=== PATIENT | female | born 1955 | race Caucasian/White ===

== ENCOUNTER 2017-05-13 08:04 | Emergency (ER) | payer OTHER ==
--- NOTE | 2017-05-13 08:31 | ER Document Report ---
ED General - General Chief Complaint: Abdominal Pain Stated Complaint: LEFT SIDE PAIN Time Seen by Provider: 05/13/17 08:17 Mode of Arrival: Ambulatory Information source: Patient Notes: 61-year-old female history of diverticulosis presents with left lower quadrant abdominal pain. Patient does not give any information states just look it up in my records, states pain has been ongoing for 3 days patient is tearful noted to have an attitude towards myself She denies any fevers or chills she admits to nausea without vomiting TRAVEL OUTSIDE OF THE [place] IN LAST 30 DAYS: No - HPI Onset: Other Onset/Duration: Intermittent Quality of pain: Sharp Severity: Mild Pain Level: 1 Associated symptoms: Nausea, Other Exacerbated by: Denies Relieved by: Denies Similar symptoms previously: Yes Recently seen / treated by doctor: No - Related Data Allergies/Adverse Reactions: No Known Allergies Allergy (Verified 05/13/17 08:06) Home Medications: Current Home Medications Amoxicillin 500 mg PO BID 05/13/17 [History] Atorvastatin Calcium [Lipitor 10 mg Tablet] 10 mg PO DAILY 05/13/17 [History] Omeprazole 20 mg PO BID 05/13/17 [History] Valsartan/Hydrochlorothiazide [Valsartan-Hctz 160-12.5 mg Tab] 1 each PO DAILY 05/13/17 [History] Past Medical History - Social History Smoking Status: Never Smoker Cigarette use (# per day): No Chew tobacco use (# tins/day): No Smoking Education Provided: No Family History: denies: Arthritis, Other - No clotting disorder Patient has suicidal ideation: No Patient has homicidal ideation: No - Past Medical History Cardiac Medical History: Reports: Hx Hypercholesterolemia, Hx Hypertension Denies: Hx Heart Attack Pulmonary Medical History: Denies: Hx Asthma Neurological Medical History: Denies: Hx Cerebrovascular Accident, Hx Seizures Renal/ Medical History: Denies: Hx Peritoneal Dialysis GI Medical History: Denies: Hx Hepatitis, Hx Hiatal Hernia, Hx Ulcer Infectious Medical History: Denies: Hx Hepatitis Past Surgical History: Reports: Hx Appendectomy, Hx Section, Hx Cholecystectomy, Hx Mastectomy - LT BREAST/AVOID LT ARM. Denies: Hx Open Heart Surgery, Hx Pacemaker - Immunizations Hx Diphtheria, Pertussis, Tetanus Vaccination: Yes Review of Systems - Review of Systems Notes: REVIEW OF SYSTEMS: CONSTITUTIONAL : Denies fever, chills, or sweats. Denies recent illness. EENT: Denies eye, ear, throat, or mouth pain or symptoms. Denies nasal or sinus congestion or discharge. Denies throat, tongue, or mouth swelling or difficulty swallowing. CARDIOVASCULAR: Denies chest pain. Denies palpitations or racing or irregular heart beat. Denies ankle edema. RESPIRATORY: Denies cough, cold, or chest congestion. Denies shortness of breath, difficulty breathing, or wheezing. GASTROINTESTINAL: Admits to abdominal pain admits nausea GENITOURINARY: Denies difficulty urinating, painful urination, burning, frequency, blood in urine, or discharge. FEMALE GENITOURINARY: Denies vaginal bleeding, heavy or abnormal periods, irregular periods. Denies vaginal discharge or odor. MUSCULOSKELETAL: Denies back or neck pain or stiffness. Denies joint pain or swelling. SKIN: Denies rash, lesions or sores. HEMATOLOGIC : Denies easy bruising or bleeding. LYMPHATIC: Denies swollen, enlarged glands. NEUROLOGICAL: Denies confusion or altered mental status. Denies passing out or loss of consciousness. Denies dizziness or lightheadedness. Denies headache. Denies weakness or paralysis or loss of use of either side. Denies problems with gait or speech. Denies sensory loss, numbness, or tingling. Denies seizures. PSYCHIATRIC: Anxious ALL OTHER SYSTEMS REVIEWED AND NEGATIVE. PHYSICAL EXAMINATION: GENERAL: Well-appearing, well-nourished and in no acute distress. HEAD: Atraumatic, normocephalic. EYES: Pupils equal round and reactive to light, extraocular movements intact, conjunctiva are normal. ENT: Nares patent, oropharynx clear without exudates. Moist mucous membranes. NECK: Normal range of motion, supple without lymphadenopathy LUNGS: Breath sounds clear to auscultation bilaterally and equal. No wheezes rales or rhonchi. HEART: Regular rate and rhythm without murmurs ABDOMEN: Soft, tender in the left lower quadrant, nondistended abdomen. No guarding, no rebound. No masses appreciated. Female : deferred Musculoskeletal: Normal range of motion, no pitting or edema. No cyanosis. NEUROLOGICAL: Cranial nerves grossly intact. Normal speech, normal gait. Normal sensory, motor exams PSYCH: Tearful SKIN: Warm, Dry, normal turgor, no rashes or lesions noted. Dictation was performed using Dragon voice recognition software Physical Exam - Vital signs Vitals: Temp Pulse Resp BP Pulse Ox 97.9 F 94 16 118/98 H 95 05/13/17 08:06 05/13/17 08:06 05/13/17 08:06 05/13/17 08:06 05/13/17 08:06 Course - Re-evaluation Re-evalutation: 05/13/17 08:30 Patient overall looks quite well has probable diverticulitis given location and history, patient is quite rude to me from the nurse, I explained to her very calmly that I will gladly treat her nausea and pain but that I do not know her medical history since her previous colonoscopy that is not system from 2011 noted no diverticulosis. Lab work CT pending 05/13/17 08:36 05/13/17 16:18 CT was consistent with diverticulitis as expected, I explained the whole process to the patient including with diverticulitis and diverticulosis since she is not been aware of this. Patient to my face was again pleasant however again was quite rude to nursing staff and stated rude comments about myself to the nurses. Otherwise patient is medically stable will be put on antibiotics and given follow-up with GI specialist After performing a Medical Screening Examination, I estimate there is LOW risk for ACUTE APPENDICITIS, BOWEL OBSTRUCTION, ACUTE CHOLECYSTITIS, PERFORATED DIVERTICULITIS, INCARCERATED HERNIA, PANCREATITIS, PELVIC INFLAMMATORY DISEASE, PERFORATED ULCER, ECTOPIC , or TUBO-OVARIAN ABSCESS, thus I consider the discharge disposition reasonable. Also, there is no evidence or peritonitis , sepsis, or toxicity. I have reevaluated this patient multiple times and no significant life threatening changes are noted. The patient and I have discussed the diagnosis and risks, and we agree with discharging home with close follow-up with the understanding that symptoms and presentations can change. We also discussed returning to the Emergency Department immediately if new or worsening symptoms occur. We have discussed the symptoms which are most concerning (e.g., bloody stool, fever, changing or worsening pain, vomiting) that necessitate immediate return. - Vital Signs Vital signs: Temp Pulse Resp BP Pulse Ox 97.7 F 71 14 114/64 94 05/13/17 11:11 05/13/17 11:11 05/13/17 11:11 05/13/17 11:11 05/13/17 11:11 - Laboratory Result Diagrams: 05/13/17 09:05 05/13/17 09:05 Laboratory results interpreted by me: 05/13/17 05/13/17 05/13/17 09:05 09:05 10:20 WBC 10.6 H MCH 34.2 H Creatinine 0.45 L Glucose 120 H ALT 53 H Ur Leukocyte Esterase TRACE H - Diagnostic Test Radiology reviewed: Image reviewed, Reports reviewed - Diverticulitis Discharge - Discharge Clinical Impression: Diverticulitis Abdominal pain Qualifiers: Abdominal location: left lower quadrant Qualified Code(s): R10.32 - Left lower quadrant pain Nausea & vomiting Qualifiers: Vomiting type: unspecified Vomiting Intractability: non-intractable Qualified Code(s): R11.2 - Nausea with vomiting, unspecified Condition: Stable Disposition: HOME, SELF-CARE Instructions: Diverticulitis ([facility]) Prescriptions: Ciprofloxacin HCl [Cipro 500 mg Tablet] 500 mg PO BID #20 tablet Metronidazole [Flagyl 500 mg Tablet] 500 mg PO Q6H #40 tablet Oxycodone HCl/Acetaminophen [Percocet 5-325 mg Tablet] 1 - 2 tab PO Q4H PRN #15 tablet PRN Reason: Promethazine HCl [Phenergan 25 mg Tablet] 1 - 2 tab PO Q6H PRN #15 tablet PRN Reason: Referrals: LEOPOLDO RUSSELL MD [ACTIVE STAFF] - Follow up tomorrow
[2017-05-13] MEDS ORDERED: NORMAL SALINE 1000 ML 1,000 ML IV ONE (08:35)
[2017-05-13] MEDS ORDERED: HYDROMORPHONE HCL INJ/PF 2 MG/ML AMPULE IV ONE (08:35)
[2017-05-13] MEDS ORDERED: ONDANSETRON HCL INJ/PF 4 MG/2 ML SDV IV ONE (08:35)
[2017-05-13 09:27] LABS: ABSOLUTE BASOPHILS # (AUTO) 0.1 10^3/uL (0.0-0.2); ABSOLUTE EOSINOPHILS # (AUTO) 0.2 10^3/uL (0.0-0.6); ABSOLUTE LYMPHOCYTES (AUTO) 2.6 10^3/uL (0.5-4.7); ABSOLUTE MONOCYTES (AUTO) 0.8 10^3/uL (0.1-1.4); ABSOLUTE NEUT (AUTO) 6.9 10^3/uL (1.7-8.2); BASOPHILS % (AUTO) 0.6 % (0-2); EOSINOPHILS % (AUTO) 1.6 % (0-6); HEMATOCRIT 39.5 % (36.0-47.0); HEMOGLOBIN 13.9 g/dL (12.0-15.5); HGB HCT DIFFERENCE 2.2; LYMPHOCYTES % (AUTO) 24.8 % (13-45); MEAN CORPUSCULAR HEMOGLOBIN 34.2 pg (27.0-33.4); MEAN CORPUSCULAR HGB CONC 35.2 g/dL (32.0-36.0); MEAN CORPUSCULAR VOLUME 97 fl (80-97); MONOCYTES % (AUTO) 7.6 % (3-13); RED BLOOD COUNT 4.07 10^6/uL (3.72-5.28); RED CELL DISTRIBUTION WIDTH 12.2 % (11.5-14.0); SEGMENTED NEUTROPHILS % (AUTO) 65.4 % (42-78); WHITE BLOOD COUNT 10.6 10^3/uL (4.0-10.5)
[2017-05-13] MEDS ORDERED: ONDANSETRON HCL INJ/PF 4 MG/2 ML SDV ONE (09:29)
[2017-05-13 09:41] LABS: ALANINE AMINOTRANSFERASE 53 U/L (9-52); ALBUMIN 4.4 g/dL (3.5-5.0); ALKALINE PHOSPHATASE 91 U/L (38-126); ANION GAP 12 (5-19); ASPARTATE AMINO TRANSFERASE 29 U/L (14-36); BILIRUBIN,DIRECT 0.4 mg/dL (0.0-0.4); BILIRUBIN,TOTAL 0.7 mg/dL (0.2-1.3); BLOOD UREA NITROGEN 10 mg/dL (7-20); CALCIUM 9.8 mg/dL (8.4-10.2); CARBON DIOXIDE 27 mmol/L (22-30); CHLORIDE 105 mmol/L (98-107); CREATININE RESULT 0.45 mg/dL (0.52-1.25); GLUCOSE 120 mg/dL (75-110); LIPASE 107.1 U/L (23-300); SODIUM 143.7 mmol/L (137-145); TOTAL PROTEIN 7.4 g/dL (6.3-8.2)
[2017-05-13 10:36] LABS: APPEARANCE,URINE CLEAR; BILIRUBIN,URINE NEGATIVE (NEGATIVE); GLUCOSE, URINE NEGATIVE (NEGATIVE); KETONES,URINE NEGATIVE (NEGATIVE); LEUKOCYTE ESTERASE,URINE TRACE (NEGATIVE); NITRITE,URINE NEGATIVE (NEGATIVE); PROTEIN,URINE NEGATIVE (NEGATIVE); URINE SPECIFIC GRAVITY 1.011; UROBILINOGEN,URINE NEGATIVE mg/dL (<2.0)
--- NOTE | 2017-05-13 10:37 | RADIOLOGY REPORT (SQ) ---
EXAM DESCRIPTION: CT ABD/PELVIS WITH IV ONLY COMPLETED DATE/TIME: 05/13/2017 10:12 am REASON FOR STUDY: LLQ pain COMPARISON: None. TECHNIQUE: CT scan of the abdomen and pelvis performed with intravenous and oral contrast using jonnie shalonda scanning technique with dynamic intravenous contrast injection. Images reviewed with lung, soft t issue, and bone windows. Reconstructed coronal and sagittal MPR images reviewed. Delayed images for e valuation of the urinary system also acquired. All images stored on PACS. All CT scanners at this facility use dose modulation, iterative reconstruction, and/or weight based d osing when appropriate to reduce radiation dose to as low as reasonably achievable (ALARA). [facility]: Dose Right [facility]: CareDose [facility]: Dose Right [facility]: Teradose 4D [facility]: [email or web address] CONTRAST TYPE AND DOSE: contrast/concentration: Isovue 370.00 mg/ml; Total Contrast Delivered: 82.0 ml; Total Saline Delivered: 68.0 ml RENAL FUNCTION: GFR > 60. RADIATION DOSE: Up-to-date CT equipment and radiation dose reduction techniques were employed. CTDIv ol: 8.6 - 13.0 mGy. DLP: 1077 mGy-cm. . LIMITATIONS: None. FINDINGS: LOWER CHEST: No significant findings. No nodules or infiltrates. LIVER: Normal size. No masses. No dilated ducts. SPLEEN: Normal size. No focal lesions. PANCREAS: No masses. No significant calcifications. No adjacent inflammation or peripancreatic fluid collections. Pancreatic duct not dilated. GALLBLADDER: Surgically absent. ADRENAL GLANDS: No significant masses or asymmetry. RIGHT KIDNEY AND URETER: No solid masses. No significant calcifications. No hydronephrosis or hyd roureter. LEFT KIDNEY AND URETER: No solid masses. No significant calcifications. No hydronephrosis or hydr oureter. AORTA AND VESSELS: No aneurysm. No dissection. Renal arteries, SMA, celiac without stenosis. RETROPERITONEUM: No retroperitoneal adenopathy, hemorrhage or masses. BOWEL AND PERITONEAL CAVITY: Mesenteric inflammation involving a segment distal descending colon cont aining diverticula. No organized fluid collection. No obstruction. No free air or ascites. APPENDIX: Surgically absent. PELVIS: No significant masses. Normal bladder. No free fluid. ABDOMINAL WALL: No masses. No hernias. BONES: No significant or acute findings. OTHER: No other significant finding. IMPRESSION: Diverticulitis distal descending colon. TECHNICAL DOCUMENTATION: JOB ID: [id number] Quality ID # [id number]: Final reports with documentation of one or more dose reduction techniques (e.g., Au tomated exposure control, adjustment of the mA and/or kV according to patient size, use of iterative reconstruction technique) 2010 [employer]- All Rights Reserved
[2017-05-13 11:15] VITALS: BP 114/64
== END 2017-05-13 11:18 | disposition home or self-care (01) ==
LOC: ER 08:04
DX: K57.32 Diverticulitis of large intestine without perforation or abscess without bleeding (principal); R10.32 Left lower quadrant pain; I10 Essential (primary) hypertension; F41.9 Anxiety disorder, unspecified; Z90.49 Acquired absence of other specified parts of digestive tract
CPT/HCPCS: 99284; 96361; 96374; 96375; 36415; 83690; 85025; 80053; 81001; 74177; J1170; J2405; J7030

== ENCOUNTER 2017-05-20 10:13 | Emergency (ER) | payer OTHER ==
[2017-05-20] MEDS ORDERED: ONDANSETRON HCL INJ/PF 4 MG/2 ML SDV IV ONE (10:23)
[2017-05-20] MEDS ORDERED: NORMAL SALINE 1000 ML 1,000 ML IV ONE (10:23)
--- NOTE | 2017-05-20 10:25 | ER Document Report ---
ED Medical Screen (RME) - General Chief Complaint: Abdominal Pain Stated Complaint: ABDOMINAL PAIN Time Seen by Provider: 05/20/17 10:22 Mode of Arrival: Ambulatory Information source: Patient TRAVEL OUTSIDE OF THE [place] IN LAST 30 DAYS: No - HPI Patient complains to provider of: abd pain/nausea Onset: Other - pt was diagnosed with diverticulitis earlier this month -- has been having increased pain and nausea for the past few days - Related Data Allergies/Adverse Reactions: No Known Allergies Allergy (Verified 05/20/17 10:18) Past Medical History - Past Medical History Cardiac Medical History: Reports: Hx Hypercholesterolemia, Hx Hypertension Denies: Hx Heart Attack Pulmonary Medical History: Denies: Hx Asthma Neurological Medical History: Denies: Hx Cerebrovascular Accident, Hx Seizures Renal/ Medical History: Denies: Hx Peritoneal Dialysis GI Medical History: Reports: Hx Gastroesophageal Reflux Disease. Denies: Hx Hepatitis, Hx Hiatal Hernia, Hx Ulcer Infectious Medical History: Denies: Hx Hepatitis Past Surgical History: Reports: Hx Appendectomy, Hx Section, Hx Cholecystectomy, Hx Mastectomy - LT BREAST/AVOID LT ARM. Denies: Hx Open Heart Surgery, Hx Pacemaker - Immunizations Hx Diphtheria, Pertussis, Tetanus Vaccination: Yes Physical Exam - Vital signs Vitals: Temp Pulse Resp BP Pulse Ox 97.5 F 77 18 126/77 H 95 05/20/17 10:18 05/20/17 10:18 05/20/17 10:18 05/20/17 10:18 05/20/17 10:18 Course - Vital Signs Vital signs: Temp Pulse Resp BP Pulse Ox 97.5 F 77 18 126/77 H 95 05/20/17 10:18 05/20/17 10:18 05/20/17 10:18 05/20/17 10:18 05/20/17 10:18
[2017-05-20 11:09] LABS: ABSOLUTE BASOPHILS # (AUTO) 0.1 10^3/uL (0.0-0.2); ABSOLUTE EOSINOPHILS # (AUTO) 0.2 10^3/uL (0.0-0.6); ABSOLUTE LYMPHOCYTES (AUTO) 2.5 10^3/uL (0.5-4.7); ABSOLUTE MONOCYTES (AUTO) 0.6 10^3/uL (0.1-1.4); ABSOLUTE NEUT (AUTO) 3.9 10^3/uL (1.7-8.2); BASOPHILS % (AUTO) 1.1 % (0-2); EOSINOPHILS % (AUTO) 2.2 % (0-6); HEMOGLOBIN 14.2 g/dL (12.0-15.5); HGB HCT DIFFERENCE 2.6; LYMPHOCYTES % (AUTO) 34.4 % (13-45); MEAN CORPUSCULAR HGB CONC 35.5 g/dL (32.0-36.0); MEAN CORPUSCULAR VOLUME 96 fl (80-97); MONOCYTES % (AUTO) 8.2 % (3-13); RED BLOOD COUNT 4.18 10^6/uL (3.72-5.28); RED CELL DISTRIBUTION WIDTH 11.7 % (11.5-14.0); SEGMENTED NEUTROPHILS % (AUTO) 54.1 % (42-78); WHITE BLOOD COUNT 7.2 10^3/uL (4.0-10.5)
[2017-05-20 13:05] LABS: APPEARANCE,URINE CLEAR; BILIRUBIN,URINE NEGATIVE (NEGATIVE); GLUCOSE, URINE NEGATIVE (NEGATIVE); KETONES,URINE NEGATIVE (NEGATIVE); LEUKOCYTE ESTERASE,URINE TRACE (NEGATIVE); NITRITE,URINE NEGATIVE (NEGATIVE); PROTEIN,URINE NEGATIVE (NEGATIVE); URINE SPECIFIC GRAVITY 1.008; UROBILINOGEN,URINE NEGATIVE mg/dL (<2.0)
[2017-05-20 13:13] LABS: ALANINE AMINOTRANSFERASE 45 U/L (9-52); ALBUMIN 3.8 g/dL (3.5-5.0); ALKALINE PHOSPHATASE 67 U/L (38-126); ANION GAP 11 (5-19); ASPARTATE AMINO TRANSFERASE 31 U/L (14-36); BILIRUBIN,DIRECT 0.4 mg/dL (0.0-0.4); BILIRUBIN,TOTAL 0.4 mg/dL (0.2-1.3); BLOOD UREA NITROGEN 6 mg/dL (7-20); CARBON DIOXIDE 27 mmol/L (22-30); CHLORIDE 105 mmol/L (98-107); CREATININE RESULT 0.43 mg/dL (0.52-1.25); GLUCOSE 99 mg/dL (75-110); LIPASE 127.6 U/L (23-300); POTASSIUM 3.8 mmol/L (3.6-5.0); SODIUM 142.8 mmol/L (137-145); TOTAL PROTEIN 6.6 g/dL (6.3-8.2)
--- NOTE | 2017-05-20 14:05 | ER Document Report ---
ED General - General Chief Complaint: Abdominal Pain Stated Complaint: ABDOMINAL PAIN Time Seen by Provider: 05/20/17 10:22 Mode of Arrival: Ambulatory TRAVEL OUTSIDE OF THE [place] IN LAST 30 DAYS: No - HPI Patient complains to provider of: Abdominal pain Notes: Patient coming in for complaint of abdominal pain. Patient states has a history of diverticulitis lower quadrant abdominal pain. Patient states multiple bouts of diverticulitis. Patient denies any fevers chills nausea vomiting diarrhea at this time. Denies any dark stools. Patient otherwise looks to be in no obvious distress upon evaluation. - Related Data Allergies/Adverse Reactions: No Known Allergies Allergy (Verified 05/20/17 10:18) Past Medical History - General Information source: Patient - Social History Smoking Status: Never Smoker Frequency of alcohol use: None Drug Abuse: None Family History: denies: Arthritis, Other - No clotting disorder Patient has suicidal ideation: No Patient has homicidal ideation: No - Past Medical History Cardiac Medical History: Reports: Hx Hypercholesterolemia, Hx Hypertension Denies: Hx Heart Attack Pulmonary Medical History: Denies: Hx Asthma Neurological Medical History: Denies: Hx Cerebrovascular Accident, Hx Seizures Renal/ Medical History: Denies: Hx Peritoneal Dialysis GI Medical History: Reports: Hx Gastroesophageal Reflux Disease. Denies: Hx Hepatitis, Hx Hiatal Hernia, Hx Ulcer Infectious Medical History: Denies: Hx Hepatitis Past Surgical History: Reports: Hx Appendectomy, Hx Section, Hx Cholecystectomy, Hx Mastectomy - LT BREAST/AVOID LT ARM. Denies: Hx Open Heart Surgery, Hx Pacemaker - Immunizations Hx Diphtheria, Pertussis, Tetanus Vaccination: Yes Review of Systems - Review of Systems Constitutional: No symptoms reported EENT: No symptoms reported Cardiovascular: No symptoms reported Respiratory: No symptoms reported Gastrointestinal: Abdominal pain Genitourinary: No symptoms reported Female Genitourinary: No symptoms reported Musculoskeletal: No symptoms reported Skin: No symptoms reported Hematologic/Lymphatic: No symptoms reported Neurological/Psychological: No symptoms reported -: Yes All other systems reviewed and negative Physical Exam - Vital signs Vitals: Temp Pulse Resp BP Pulse Ox 97.5 F 77 18 126/77 H 95 05/20/17 10:18 05/20/17 10:18 05/20/17 10:18 05/20/17 10:18 05/20/17 10:18 Interpretation: Normal - General General appearance: Appears well, Alert - HEENT Head: Normocephalic, Atraumatic Eyes: Normal Pupils: PERRL - Respiratory Respiratory status: No respiratory distress Chest status: Nontender Breath sounds: Normal Chest palpation: Normal - Cardiovascular Rhythm: Regular Heart sounds: Normal auscultation Murmur: No - Abdominal Inspection: Normal Distension: No distension Bowel sounds: Normal Tenderness: Tender - Diffuse tenderness no guarding or rebound. Organomegaly: No organomegaly - Back Back: Normal, Nontender - Extremities General upper extremity: Normal inspection, Nontender, Normal color, Normal ROM , Normal temperature General lower extremity: Normal inspection, Nontender, Normal color, Normal ROM , Normal temperature, Normal weight bearing. No: Kelsi's sign - Neurological Neuro grossly intact: Yes Cognition: Normal Orientation: AAOx4 [place] Coma Scale Eye Opening: Spontaneous Michelle Coma Scale Verbal: Oriented Michelle Coma Scale Motor: Obeys Commands Michelle Coma Scale Total: 15 Speech: Normal Motor strength normal: LUE, RUE, LLE, RLE Sensory: Normal - Psychological Associated symptoms: Normal affect, Normal mood - Skin Skin Temperature: Warm Skin Moisture: Dry Skin Color: Normal Course - Re-evaluation Re-evalutation: 05/20/17 14:04 Find leg and the patient's past medical here and computer patient was recently seen here in the ER with a CAT scan showing acute diverticulitis. I was unaware of this. Until this point reviewed laboratory studies labs today showed improvement CAT scan was ordered in triage currently waiting for results. 05/20/17 14:27 CT scan showed improvement overall infection still small area of diverticulitis. Patient has more antibiotics that she will need to take. Patient was encouraged to continue to finish up her antibiotics follow-up with her GI specialist also give the patient a surgical clinic information is that patient may need a colectomy this continues. Educated patient about diet. Patient will be discharged home. - Vital Signs Vital signs: Temp Pulse Resp BP Pulse Ox 97.5 F 77 18 126/77 H 95 05/20/17 10:18 05/20/17 10:18 05/20/17 10:18 05/20/17 10:18 05/20/17 10:18 - Laboratory Result Diagrams: 05/20/17 10:40 05/20/17 12:25 Laboratory results interpreted by me: 11/19/17 11/19/17 11/19/17 10:40 11:45 12:25 MCH 34.0 H BUN 6 L Creatinine 0.43 L Ur Leukocyte Esterase TRACE H Discharge - Discharge Clinical Impression: Diverticulitis Condition: Good Disposition: HOME, SELF-CARE Instructions: Diverticulitis ([facility]), Low Residue Diet ([facility]) Additional Instructions: Your lab work today and CAT scan showed overall improvement. Her white count has decreased your CAT scan shows only a small area of diverticulitis otherwise most of your colon looks very healthy and improved at this time. I recommend continue your antibiotics he may try the Bentyl for pain control make sure you are drinking plenty of water Gatorade and fluids to stay hydrated. Avoid foods such as rice corn or other small seeds that may be hard to digest. However recommend following up with her GI specialist. Also he may need to soft your GI specialist about surgical referral. Prescriptions: Dicyclomine HCl [Bentyl 20 mg Tablet] 20 mg PO QID #20 tablet Referrals: AMRY JARQUIN MD [Primary Care Provider] - Follow up as needed MARITZA MARINELLI MD [ACTIVE STAFF] - Follow up as needed LEOPOLDO RUSSELL MD [ACTIVE STAFF] - Follow up as needed
--- NOTE | 2017-05-20 14:07 | RADIOLOGY REPORT (SQ) ---
EXAM DESCRIPTION: CT ABD/PELVIS WITH IV ONLY COMPLETED DATE/TIME: 05/20/2017 1:46 pm REASON FOR STUDY: abd pain COMPARISON: 05/13/2017. TECHNIQUE: CT scan of the abdomen and pelvis performed using helical scanning technique with dynamic intravenous contrast injection. No oral contrast. Images reviewed with lung, soft tissue, and bone windows. Reconstructed coronal and sagittal MPR images reviewed. Delayed images for evaluation of the urinary system also acquired. All images stored on PACS. All CT scanners at this facility use dose modulation, iterative reconstruction, and/or weight based d osing when appropriate to reduce radiation dose to as low as reasonably achievable (ALARA). [facility]: Dose Right [facility]: CareDose [facility]: Dose Right [facility]: Teradose 4D [facility]: [employer] CONTRAST TYPE AND DOSE: contrast/concentration: Isovue 370.00 mg/ml; Total Contrast Delivered: 80.0 ml; Total Saline Delivered: 57.0 ml RENAL FUNCTION: BUN 6 creatinine 0.43. RADIATION DOSE: Up-to-date CT equipment and radiation dose reduction techniques were employed. CTDIv ol: 7.5 - 8.8 mGy. DLP: 820 mGy-cm.. LIMITATIONS: None. FINDINGS: LOWER CHEST: No significant findings. No nodules or infiltrates. LIVER: Normal size. No masses. No dilated ducts. SPLEEN: Normal size. No focal lesions. PANCREAS: No masses. No significant calcifications. No adjacent inflammation or peripancreatic fluid collections. Pancreatic duct not dilated. GALLBLADDER: Surgically absent. ADRENAL GLANDS: No significant masses or asymmetry. RIGHT KIDNEY AND URETER: Cortical cysts. No solid masses. No significant calcifications. No hydr onephrosis or hydroureter. LEFT KIDNEY AND URETER: Cortical cysts. No solid masses. No significant calcifications. No hydro nephrosis or hydroureter. AORTA AND VESSELS: No aneurysm. No dissection. Renal arteries, SMA, celiac without stenosis. RETROPERITONEUM: No retroperitoneal adenopathy, hemorrhage or masses. BOWEL AND PERITONEAL CAVITY: Extensive colonic diverticuli. Minimal in inflammation in the pericolon ic tissues adjacent to the distal descending colon. No focal fluid collection or extraluminal gas. N o free fluid or peritoneal masses. APPENDIX: Surgically absent. PELVIS: No mass. No free fluid. Normal bladder. ABDOMINAL WALL: No masses. No hernias. BONES: No significant or acute findings. OTHER: No other significant finding. IMPRESSION: 1. EXTENSIVE COLONIC DIVERTICULOSIS. MINIMAL DIVERTICULITIS INVOLVING THE DISTAL DESCENDING COLON WH ICH HAS IMPROVED SINCE THE PRIOR STUDY. 2. NO OTHER SIGNIFICANT OR ACUTE FINDING IN THE ABDOMEN OR PELVIS ON CT SCAN WITH IV CONTRAST. INCID ENTAL RENAL CYSTS. TECHNICAL DOCUMENTATION: JOB ID: [id number] Quality ID # [id number]: Final reports with documentation of one or more dose reduction techniques (e.g., Au tomated exposure control, adjustment of the mA and/or kV according to patient size, use of iterative reconstruction technique) 2010 [employer]- All Rights Reserved
[2017-05-20 14:52] VITALS: BP 123/78
== END 2017-05-20 14:52 | disposition home or self-care (01) ==
LOC: ER 10:13
DX: K57.92 Diverticulitis of intestine, part unspecified, without perforation or abscess without bleeding (principal); R10.9 Unspecified abdominal pain
CPT/HCPCS: 99284; 96361; 96374; 36415; 83690; 85025; 80053; 81001; 74177; J2405; J7030

== ENCOUNTER 2017-06-18 10:05 | Day surgery (SDC) | payer OTHER ==
[~2017-06-18 10:05] MED LIST: PROPOFOL INJ 200 MG/20 ML VIAL IV ONE
[2017-06-18] MEDS ORDERED: PROPOFOL INJ 200 MG/20 ML VIAL IV ONE (10:56)
[2017-06-18 11:48] VITALS: BP 103/59
--- NOTE | 2017-06-18 12:39 | Operative Report ---
Operative Report DATE OF SURGERY: 06/18/17 Operative Report: The risks, benefits and alternatives of the procedure including risks of bleeding, perforation requiring surgery are explained to the patient in detail and informed consent was obtained. Patient was taken back to the endoscopy suite and placed in the left, lateral decubital position. Timeout was called. Propofol medications administered. A rectal examination is done which did not reveal any masses, tears or fissures. An Olympus videoscope was inserted into the patient's rectum. The scope was then carefully advanced all the way to the cecum. The cecum was identified by the usual anatomical landmarks including the ileocecal valve as well as the appendiceal office. Photodocumentation is obtained. The scope was then sequentially pulled back via the various segments of the colon including the ascending colon, hepatic flexure, transverse colon, splenic flexure, descending colon finding the rectosigmoid portions of the colon. Retroflexion maneuvers performed. The risks benefits and alternatives of the procedure explained to the patient in detail and informed consent is obtained.A GIF Olympus video scope was inserted into the patient's mouth and hypopharynx, the esophagus is identified intubated and insufflated, the scope was then advanced through the esophagus stomach and duodenum, retroflexion maneuver is done, the esophagus stomach and first and second portions of the duodenum examined PREOPERATIVE DIAGNOSIS: Previous history of diverticulitis. Change in bowel habits. History of Helicobacter pylori gastritis for evaluation of persistent infection POSTOPERATIVE DIAGNOSIS: Gastritis status post biopsy rule out Helicobacter pylori. Mild right side colon Inflammation status post biopsy rule out lymphocytic, microscopic, collagenous colitis. Colon polyp was removed via snare polypectomy. Diverticulosis. Internal hemorrhoids OPERATION: Colonoscopy with snare polypectomy. Colonoscopy with biopsy. EGD with biopsy SURGEON: JENNY ZARAGOZA ANESTHESIA: LMAC TISSUE REMOVED OR ALTERED: As noted above. COMPLICATIONS: None. ESTIMATED BLOOD LOSS: None. INTRAOPERATIVE FINDINGS: As noted above. PROCEDURE: Patient tolerated procedure well. No immediate postprocedure complications are noted. Patient discharged in good condition. Discharge date 06/18/2017. Discharge diet: Regular. Discharge activity: Regular. 2-3 week follow-up to discuss findings. Patient is instructed to call the office or proceed to the emergency room should there be any further problems or questions. 5 year surveillance colonoscopy. We will wait on pathology.
== END 2017-06-18 11:50 | disposition home or self-care (01) ==
LOC: END 10:05
PROVIDERS: ATTEND Internal Medicine Gastroenterology
PROC: 0DB68ZX Excision of Stomach, Via Natural or Artificial Opening Endoscopic, Diagnostic (ICD-10-PCS; principal; 2017-06-18 12:30)
PROC: 0DBF8ZX Excision of Right Large Intestine, Via Natural or Artificial Opening Endoscopic, Diagnostic (ICD-10-PCS; 2017-06-18 12:30)
DX: K57.30 Diverticulosis of large intestine without perforation or abscess without bleeding (principal); K29.50 Unspecified chronic gastritis without bleeding; K64.8 Other hemorrhoids; I10 Essential (primary) hypertension; D05.90 Unspecified type of carcinoma in situ of unspecified breast; E78.00 Pure hypercholesterolemia, unspecified; Z79.82 Long term (current) use of aspirin; Z79.899 Other long term (current) drug therapy
CPT/HCPCS: 43239; 45380; 45385; 88342 ×2; 88305 ×2; J2704

== ENCOUNTER 2018-05-08 07:38 | Day surgery (SDC) | payer MEDICARE, OTHER ==
[2018-05-08] MEDS ORDERED: ONDANSETRON HCL INJ/PF 4 MG/2 ML SDV ONE (07:41)
[2018-05-08] MEDS ORDERED: FLUMAZENIL INJ 0.5 MG/5 ML VIAL ONE (07:42)
[2018-05-08] MEDS ORDERED: EPINEPHRINE INJ 1 MG/10 ML DISP.SYRIN ONE (07:42)
[2018-05-08] MEDS ORDERED: GLUCAGON,HUMAN RECOMB 1 MG INJ ONE (07:42)
[2018-05-08] MEDS ORDERED: NALOXONE HCL INJ/PF 0.4 MG/1 ML SDV ONE (07:42)
[2018-05-08] MEDS: MIDAZOLAM 2 MG/2 ML INJ ONE ×2 (08:04→08:08)
[2018-05-08] MEDS: FENTANYL CITRATE INJ/PF 100 MCG/2 ML AMPUL ONE ×2 (08:06→08:10)
--- NOTE | 2018-05-08 08:20 | Operative Report ---
Operative Report DATE OF SURGERY: 05/08/18 Operative Report: The risks benefits and alternatives of the procedure explained to the patient in detail and informed consent is obtained.A GIF Olympus video scope was inserted into the patient's mouth and hypopharynx ,the esophagus is identified intubated and insufflated, the scope was then advanced through the esophagus stomach and duodenum, retroflexion maneuver is done the esophagus stomach and first and second portions of the duodenum examined PREOPERATIVE DIAGNOSIS: Epigastric pain POSTOPERATIVE DIAGNOSIS: Schatzki's ring status post breakage. Hiatal hernia. Gastritis status post biopsy rule out Helicobacter pylori OPERATION: EGD with biopsy SURGEON: JENNY ZARAGOZA ANESTHESIA: Moderate Sedation - 4 mg of Versed, 50 mcg of fentanyl. Conscious sedation monitoring time 30 minutes. TISSUE REMOVED OR ALTERED: As noted above. COMPLICATIONS: None. ESTIMATED BLOOD LOSS: None. INTRAOPERATIVE FINDINGS: As noted above. PROCEDURE: Patient tolerated the procedure well. No immediate postprocedure complications are noted. Patient discharged in good condition. Discharge date 05/08/2018. Discharge diet: Regular. Discharge activity: Regular. 2-3-week follow-up to discuss findings. Patient is instructed call the office or proceed to the emergency room should there be any further proximal questions. Wait on the pathology.
[2018-05-08 09:21] VITALS: BP 99/84
== END 2018-05-08 09:25 | disposition home or self-care (01) ==
LOC: END 07:38
PROVIDERS: ATTEND Internal Medicine Gastroenterology
DX: K22.2 Esophageal obstruction (principal); K44.9 Diaphragmatic hernia without obstruction or gangrene; K29.50 Unspecified chronic gastritis without bleeding; I10 Essential (primary) hypertension; E78.00 Pure hypercholesterolemia, unspecified; Z79.82 Long term (current) use of aspirin; Z79.899 Other long term (current) drug therapy; Z85.3 Personal history of malignant neoplasm of breast
CPT/HCPCS: 43239; 88342 ×2; 88305 ×2; J2250; J3010; J0171; J1610; J2310; J2405; J3490

== ENCOUNTER 2018-10-20 19:43 | Emergency (ER) | payer MEDICARE, OTHER ==
[2018-10-20] MEDS ORDERED: ONDANSETRON 4 MG TAB.RAPDIS PO ONE (20:29)
[2018-10-20] MEDS ORDERED: MECLIZINE HCL 25 MG TABLET PO ONE (20:29)
--- NOTE | 2018-10-20 20:31 | ER Document Report ---
ED Medical Screen (RME) - General Chief Complaint: Headache Stated Complaint: HEADACHE Time Seen by Provider: 10/20/18 20:29 Primary Care Provider: GOLDIE,EMPLOYEE [Primary Care Provider] - Follow up as needed Mode of Arrival: Ambulatory Information source: Patient Notes: Patient presents complaining of headache pain off and on for the past 3-4 days. Patient presently denies any headache pain at this time. Patient does report dizziness in which she feels off balance. Patient also reports blurred vision to the left eye 2 days ago that has since returned to normal. Patient reports some mild shortness of breath that started yesterday. Patient also complains of nausea. Patient denies any chest pain. Patient does report some sinus congestion that she attributes to allergies. hx: Hypertension, dyslipidemia I have greeted and performed a rapid initial assessment of this patient. A comprehensive ED assessment and evaluation of the patient, analysis of test results and completion of the medical decision making process will be conducted by additional ED providers. TRAVEL OUTSIDE OF THE [place] IN LAST 30 DAYS: No - Related Data Allergies/Adverse Reactions: No Known Allergies Allergy (Verified 05/08/18 07:42) Past Medical History - Social History Chew tobacco use (# tins/day): No Frequency of alcohol use: None Drug Abuse: None - Past Medical History Cardiac Medical History: Reports: Hx Hypercholesterolemia, Hx Hypertension Denies: Hx Coronary Artery Disease, Hx Heart Attack Pulmonary Medical History: Reports: Hx Pneumonia Denies: Hx Asthma, Hx Bronchitis, Hx COPD Neurological Medical History: Denies: Hx Cerebrovascular Accident, Hx Seizures Renal/ Medical History: Denies: Hx Peritoneal Dialysis GI Medical History: Reports: Hx Gastroesophageal Reflux Disease. Denies: Hx Hepatitis, Hx Hiatal Hernia, Hx Ulcer Musculoskeltal Medical History: Reports Hx Arthritis - BILAT KNEES Infectious Medical History: Denies: Hx Hepatitis Past Surgical History: Reports: Hx Appendectomy, Hx Section, Hx Cholecystectomy, Hx Mastectomy - LT BREAST/AVOID LT ARM. Denies: Hx Hysterectomy, Hx Open Heart Surgery, Hx Pacemaker - Immunizations Hx Diphtheria, Pertussis, Tetanus Vaccination: Yes Influenza Administration Date for 04/2017 - 08/2017 Season: 04/01/18 Physical Exam - Vital signs Vitals: Temp Pulse Resp BP Pulse Ox 97.9 F 67 16 155/75 H 98 10/20/18 19:54 10/20/18 19:54 10/20/18 19:54 10/20/18 19:54 10/20/18 19:54 - Neurological Neuro grossly intact: Yes Cognition: Normal Michelle Coma Scale Eye Opening: Spontaneous [place] Coma Scale Verbal: Oriented Michelle Coma Scale Motor: Obeys Commands [place] Coma Scale Total: 15 Speech: Normal. No: Dysarthria Course - Vital Signs Vital signs: Temp Pulse Resp BP Pulse Ox 97.9 F 67 16 155/75 H 98 10/20/18 19:54 10/20/18 19:54 10/20/18 19:54 10/20/18 19:54 10/20/18 19:54 Doctor's Discharge - Discharge Referrals: HEALTH,EMPLOYEE [Primary Care Provider] - Follow up as needed
--- NOTE | 2018-10-20 21:31 | RADIOLOGY REPORT (SQ) ---
EXAM DESCRIPTION: XR CHEST 2 VIEWS COMPLETED DATE/TME: 10/20/2018 20:30 CLINICAL HISTORY: 63 years Female sob, dizziness COMPARISON: None. FINDINGS: The cardiomediastinal silhouette appears unremarkable. No consolidating infiltrates or pleural effusions. No pneumothorax. There is pulmonary hyperinflation with flattening of the hemidiaphragms. Post cervical changes along the left mid axillary line. IMPRESSION: No acute abnormality is identified. Pulmonary hyperinflation suggesting COPD
--- NOTE | 2018-10-20 21:43 | RADIOLOGY REPORT (SQ) ---
PROCEDURE: CLINICAL HISTORY: 63 years Female MCDONALD, dizziness COMPARISON: None. TECHNIQUE: Contiguous axial CT images obtained through the brain without IV contrast. This exam was performed according to our department optimization program which includes automated exposure control, adjustment of the mA and/or kv according to patient size and/or use of iterative reconstruction technique. FINDINGS: The ventricles and sulci are within normal limits for the patient's age. Mild periventricular white matter disease No midline shift or mass effect. No masses identified. No acute intracranial hemorrhage. No fluid or significant mucosal thickening in the visualized paranasal sinuses. No depressed calvarial fractures. IMPRESSION: No acute intracranial abnormality is identified.
--- NOTE | 2018-10-20 22:08 | ER Document Report ---
ED General - General Chief Complaint: Headache Stated Complaint: HEADACHE Time Seen by Provider: 10/20/18 20:29 Primary Care Provider: MECHE MANNING MD [ACTIVE STAFF] - Follow up tomorrow Mode of Arrival: Ambulatory Notes: Patient is a 63-year-old female that presents to the emergency department for chief complaint of headaches. Patient reports she is been having on and off headache for the past 4 days she states that it comes and goes without warning, she does not have a headache at this time. She also states that 2 days ago she had a brief episode where she had blurred vision in her left eye, it was not her left visual field but her left eye itself, states she saw flow venous across the left eye, and that it was blurred for 25-30 minutes and then improved. She denies any injury to the eye. She does see an tool and die manager, denies any history of retinal issues in the past, but has had some floaters. She denies any chest pain, shortness of breath, difficulty breathing, numbness, tingling or weakness in any extremity. Denies having any dizziness, lightheadedness or vertigo. Past Medical History: Hypertension, hyperlipidemia Past Surgical History: Denies pertinent surgical history Social History: Denies tobacco, alcohol or drug use. Primary care physician is Dr. Rivera. Family History: Reviewed and noncontributory for presenting illness Allergies: Reviewed, see documented allergy list. REVIEW OF SYSTEMS: Other than noted above, the 12 point review of systems was reviewed with the patient and were negative, all pertinent findings are included in the HPI. PHYSICAL EXAMINATION: Vital signs reviewed, nursing noted reviewed. GENERAL: Well-appearing, well-nourished and in no acute distress. HEAD: Atraumatic, normocephalic. EYES: Eyes appear normal, extraocular movements intact, sclera anicteric, conjunctiva are normal. Eyes were imaged under ultrasound, without evidence of retinal detachment, no intraorbital foreign body noted. PERRLA ENT: nares patent, oropharynx clear without exudates. Moist mucous membranes. NECK: Normal range of motion, supple without lymphadenopathy LUNGS: Breath sounds clear to auscultation bilaterally and equal. No wheezes rales or rhonchi. HEART: Regular rate and rhythm without murmurs ABDOMEN: Soft, nontender, normoactive bowel sounds. No rebound, guarding, or rigidity. No masses appreciated. EXTREMITIES: Nontender, good range of motion, no pitting or edema. NEUROLOGICAL: No focal neurological deficits. Moves all extremities spontaneously Motor and sensory grossly intact on exam. PSYCH: Normal mood, normal affect. SKIN: Warm, Dry, normal turgor, no rashes or lesions noted on exposed skin TRAVEL OUTSIDE OF THE [place] IN LAST 30 DAYS: No - Related Data Allergies/Adverse Reactions: No Known Allergies Allergy (Verified 05/08/18 07:42) Past Medical History - General Information source: Patient - Social History Smoking Status: Never Smoker Chew tobacco use (# tins/day): No Frequency of alcohol use: None Drug Abuse: None Family History: denies: Arthritis, Other - No clotting disorder Patient has suicidal ideation: No Patient has homicidal ideation: No - Past Medical History Cardiac Medical History: Reports: Hx Hypercholesterolemia, Hx Hypertension Denies: Hx Coronary Artery Disease, Hx Heart Attack Pulmonary Medical History: Reports: Hx Pneumonia Denies: Hx Asthma, Hx Bronchitis, Hx COPD Neurological Medical History: Denies: Hx Cerebrovascular Accident, Hx Seizures Renal/ Medical History: Denies: Hx Peritoneal Dialysis GI Medical History: Reports: Hx Gastroesophageal Reflux Disease. Denies: Hx Hepatitis, Hx Hiatal Hernia, Hx Ulcer Musculoskeletal Medical History: Reports Hx Arthritis - BILAT KNEES Infectious Medical History: Denies: Hx Hepatitis Past Surgical History: Reports: Hx Appendectomy, Hx Section, Hx Cholecystectomy, Hx Mastectomy - LT BREAST/AVOID LT ARM. Denies: Hx Hysterectomy, Hx Open Heart Surgery, Hx Pacemaker - Immunizations Hx Diphtheria, Pertussis, Tetanus Vaccination: Yes Physical Exam - Vital signs Vitals: Temp Pulse Resp BP Pulse Ox 97.9 F 67 16 155/75 H 98 10/20/18 19:54 10/20/18 19:54 10/20/18 19:54 10/20/18 19:54 10/20/18 19:54 Course - Re-evaluation Re-evalutation: Patient seen and examined vital signs reviewed. Laboratory data and/or imaging were ordered as appropriate for the patient's presenting symptoms and complaint, with consideration of any critical or life threatening conditions that may be associated with their obtained history and exam as noted above. Results were reviewed when available and demonstrated negative CT imaging, blood work was essentially unremarkable as well, ESR was only slightly elevated, CRP negative, low suspicion for giant cell arteritis as cause of the patient's temporary vision loss, and headache, she did not have any tenderness over the temporal arteries on physical exam. The patient was re-evaluated and was stable, no focal findings, was feeling b judith and ready to be discharged Evaluation was most consistent with headache, transient vision loss, advised follow-up with ophthalmology, I feel that this is likely retinal in etiology, possible retinal tear versus intermittent retinal detachment, although her bedside ultrasound did not demonstrate any sign of retinal detachment on my exam, however the patient's vision is normal at this time. Patient was agreeable to this plan of care Results were discussed with the patient at this point, after careful consideration I feel that that patient can be discharged from the emergency department, the patient was educated treatments and reasons to return to the emergency department based on their presumed diagnosis as noted above, they were advised to followup with a primary care physician in 2-3 days. Patient was agreeable to plan of care. *Note is created using voice recognition software and may contain spelling, syntax or grammatical errors. Laboratory 10/20/18 10/20/18 10/20/18 22:04 22:04 22:04 WBC 9.3 RBC 3.89 Hgb 13.4 Hct 37.7 MCV 97 MCH 34.4 H MCHC 35.5 RDW 12.0 Plt Count 228 Seg Neutrophils % 56.9 Lymphocytes % 34.4 Monocytes % 5.9 Eosinophils % 2.1 Basophils % 0.7 Absolute Neutrophils 5.3 Absolute Lymphocytes 3.2 Absolute Monocytes 0.5 Absolute Eosinophils 0.2 Absolute Basophils 0.1 ESR PT 12.6 INR 0.90 Sodium 136.7 L Potassium 3.6 Chloride 99 Carbon Dioxide 26 Anion Gap 12 BUN 14 Creatinine 0.54 Est GFR ( Amer) > 60 Est GFR (Non-Af Amer) > 60 Glucose 102 Calcium 9.8 Total Bilirubin 0.4 Direct Bilirubin 0.2 Neonat Total Bilirubin Not Reportable Neonat Direct Bilirubin Not Reportable Neonat Indirect Bili Not Reportable AST 25 ALT 31 Alkaline Phosphatase 100 Troponin I C-Reactive Protein Total Protein 7.6 Albumin 4.5 Urine Color Urine Appearance Urine pH Ur Specific [place] Urine Protein Urine Glucose (UA) Urine Ketones Urine Blood Urine Nitrite Urine Bilirubin Urine Urobilinogen Ur Leukocyte Esterase Urine WBC (Auto) Urine RBC (Auto) Urine Bacteria (Auto) Squamous Epi Cells Auto Urine Ascorbic Acid 10/20/18 10/20/18 10/20/18 22:04 22:04 22:04 WBC RBC Hgb Hct MCV MCH MCHC RDW Plt Count Seg Neutrophils % Lymphocytes % Monocytes % Eosinophils % Basophils % Absolute Neutrophils Absolute Lymphocytes Absolute Monocytes Absolute Eosinophils Absolute Basophils ESR 35 H PT INR Sodium Potassium Chloride Carbon Dioxide Anion Gap BUN Creatinine Est GFR ( Amer) Est GFR (Non-Af Amer) Glucose Calcium Total Bilirubin Direct Bilirubin Neonat Total Bilirubin Neonat Direct Bilirubin Neonat Indirect Bili AST ALT Alkaline Phosphatase Troponin I < 0.012 C-Reactive Protein < 5.0 Total Protein Albumin Urine Color Urine Appearance Urine pH Ur Specific [place] Urine Protein Urine Glucose (UA) Urine Ketones Urine Blood Urine Nitrite Urine Bilirubin Urine Urobilinogen Ur Leukocyte Esterase Urine WBC (Auto) Urine RBC (Auto) Urine Bacteria (Auto) Squamous Epi Cells Auto Urine Ascorbic Acid 10/20/18 22:44 WBC RBC Hgb Hct MCV MCH MCHC RDW Plt Count Seg Neutrophils % Lymphocytes % Monocytes % Eosinophils % Basophils % Absolute Neutrophils Absolute Lymphocytes Absolute Monocytes Absolute Eosinophils Absolute Basophils ESR PT INR Sodium Potassium Chloride Carbon Dioxide Anion Gap BUN Creatinine Est GFR ( Amer) Est GFR (Non-Af Amer) Glucose Calcium Total Bilirubin Direct Bilirubin Neonat Total Bilirubin Neonat Direct Bilirubin Neonat Indirect Bili AST ALT Alkaline Phosphatase Troponin I C-Reactive Protein Total Protein Albumin Urine Color STRAW Urine Appearance CLEAR Urine pH 7.0 Ur Specific [place] 1.005 Urine Protein NEGATIVE Urine Glucose (UA) NEGATIVE Urine Ketones NEGATIVE Urine Blood NEGATIVE Urine Nitrite NEGATIVE Urine Bilirubin NEGATIVE Urine Urobilinogen NEGATIVE Ur Leukocyte Esterase SMALL H Urine WBC (Auto) 8 Urine RBC (Auto) 0 Urine Bacteria (Auto) 1+ Squamous Epi Cells Auto 1 Urine Ascorbic Acid NEGATIVE Chest X-Ray 10/20/18 20:30 IMPRESSION: No acute abnormality is identified. Pulmonary hyperinflation suggesting COPD Head CT 10/20/18 20:30 IMPRESSION: No acute intracranial abnormality is identified. - Vital Signs Vital signs: Temp Pulse Resp BP Pulse Ox 97.9 F 70 18 126/71 H 97 10/20/18 23:42 10/20/18 23:42 10/20/18 23:42 10/20/18 23:42 10/20/18 23:42 - Laboratory Result Diagrams: 10/20/18 22:04 10/20/18 22:04 Laboratory results interpreted by me: 10/20/18 10/20/18 10/20/18 22:04 22:04 22:04 MCH 34.4 H ESR 35 H Sodium 136.7 L Ur Leukocyte Esterase 10/20/18 22:44 MCH ESR Sodium Ur Leukocyte Esterase SMALL H - EKG Interpretation by Me Additional EKG results interpreted by me: EKG demonstrates sinus rhythm with a ventricular rate of 59 bpm, normal axis, normal intervals, no evidence of acute ischemia in this EKG. Procedures - Ultrasound/Bedside Ultrasound/Bedside Notes: BEDSIDE OCULAR US: Bilateral orbits were examined under ultrasound, lens in place bilaterally, appeared normal, retina appeared attached, no intraorbital foreign body, or evidence of hemorrhage. Impression: Normal bilateral ocular ultrasound. Discharge - Discharge Clinical Impression: Transient visual disturbance, left Headache Qualifiers: Headache type: unspecified Headache chronicity pattern: unspecified pattern Intractability: not intractable Qualified Code(s): R51 - Headache Condition: Stable Disposition: HOME, SELF-CARE Instructions: Headache ([facility]) Additional Instructions: Please follow-up with the tool and die manager regarding her transient vision loss, this may be related to your retina, and needs to be checked out sooner than later. Referrals: MECHE MANNING MD [ACTIVE STAFF] - Follow up tomorrow
[2018-10-20 22:15] LABS: ABSOLUTE BASOPHILS # (AUTO) 0.1 10^3/uL (0.0-0.2); ABSOLUTE EOSINOPHILS # (AUTO) 0.2 10^3/uL (0.0-0.6); ABSOLUTE LYMPHOCYTES (AUTO) 3.2 10^3/uL (0.5-4.7); ABSOLUTE MONOCYTES (AUTO) 0.5 10^3/uL (0.1-1.4); ABSOLUTE NEUT (AUTO) 5.3 10^3/uL (1.7-8.2); BASOPHILS % (AUTO) 0.7 % (0-2); EOSINOPHILS % (AUTO) 2.1 % (0-6); HEMATOCRIT 37.7 % (36.0-47.0); HEMOGLOBIN 13.4 g/dL (12.0-15.5); LYMPHOCYTES % (AUTO) 34.4 % (13-45); MEAN CORPUSCULAR HEMOGLOBIN 34.4 pg (27.0-33.4); MEAN CORPUSCULAR HGB CONC 35.5 g/dL (32.0-36.0); MEAN CORPUSCULAR VOLUME 97 fl (80-97); MONOCYTES % (AUTO) 5.9 % (3-13); PLATELET COUNT 228 10^3/uL (150-450); RED BLOOD COUNT 3.89 10^6/uL (3.72-5.28); SEGMENTED NEUTROPHILS % (AUTO) 56.9 % (42-78); TOTAL CELLS COUNTED % (AUTO) 100 %; WHITE BLOOD COUNT 9.3 10^3/uL (4.0-10.5)
[2018-10-20 22:22] LABS: PROTHROMBIN TIME 12.6 SEC (11.4-15.4)
[2018-10-20 22:34] LABS: ALANINE AMINOTRANSFERASE 31 U/L (9-52); ALBUMIN 4.5 g/dL (3.5-5.0); ALKALINE PHOSPHATASE 100 U/L (38-126); ANION GAP 12 (5-19); ASPARTATE AMINO TRANSFERASE 25 U/L (14-36); BILIRUBIN,DIRECT 0.2 mg/dL (0.0-0.4); BILIRUBIN,TOTAL 0.4 mg/dL (0.2-1.3); BLOOD UREA NITROGEN 14 mg/dL (7-20); CALCIUM 9.8 mg/dL (8.4-10.2); CARBON DIOXIDE 26 mmol/L (22-30); CHLORIDE 99 mmol/L (98-107); GLUCOSE 102 mg/dL (75-110); POTASSIUM 3.6 mmol/L (3.6-5.0); SODIUM 136.7 mmol/L (137-145); TOTAL PROTEIN 7.6 g/dL (6.3-8.2)
[2018-10-20 23:19] LABS: APPEARANCE,URINE CLEAR; BILIRUBIN,URINE NEGATIVE (NEGATIVE); COLOR,URINE STRAW; GLUCOSE, URINE NEGATIVE (NEGATIVE); KETONES,URINE NEGATIVE (NEGATIVE); LEUKOCYTE ESTERASE,URINE SMALL (NEGATIVE); NITRITE,URINE NEGATIVE (NEGATIVE); PROTEIN,URINE NEGATIVE (NEGATIVE); URINE SPECIFIC GRAVITY 1.005; UROBILINOGEN,URINE NEGATIVE mg/dL (<2.0)
[2018-10-20 23:44] VITALS: BP 126/71
--- NOTE | 2018-10-21 07:23 | EKG REPORT ---
SEVERITY:- NORMAL ECG - SINUS RHYTHM : Confirmed by: Jerman Franco MD 21-Oct-2018 07:22:55
== END 2018-10-20 23:43 | disposition home or self-care (01) ==
LOC: ER 19:43
DX: R51 Headache (principal); H53.8 Other visual disturbances; E78.00 Pure hypercholesterolemia, unspecified; I10 Essential (primary) hypertension; Z90.49 Acquired absence of other specified parts of digestive tract; Z90.12 Acquired absence of left breast and nipple
CPT/HCPCS: 93005; 99284; 36415; 85025; 85652; 85610; 86140; 80053; 81001; 84484; 71046; 70450; 93010; A9270 ×2; S0119

== ENCOUNTER 2019-05-16 08:03 | Day surgery (SDC) | payer MEDICARE, OTHER ==
[2019-05-16] MEDS ORDERED: PROPOFOL INJ 200 MG/20 ML VIAL IV ONE (09:06)
--- NOTE | 2019-05-16 10:23 | Operative Report ---
Operative Report DATE OF SURGERY: 05/16/19 Operative Report: The risks benefits and alternatives of the procedure explained to the patient in detail and informed consent is obtained.A GIF Olympus video scope was inserted into the patient's mouth and hypopharynx, the esophagus is identified intubated and insufflated, the scope was then advanced through the esophagus stomach and duodenum, retroflexion maneuver is done the esophagus stomach and first and second portions of the duodenum examined. PREOPERATIVE DIAGNOSIS: Dyspepsia POSTOPERATIVE DIAGNOSIS: Gastritis with some areas showing some heme OPERATION: EGD with biopsy SURGEON: JENNY ZARAGOZA ANESTHESIA: LMAC TISSUE REMOVED OR ALTERED: As noted above. COMPLICATIONS: None. ESTIMATED BLOOD LOSS: None. INTRAOPERATIVE FINDINGS: As noted above. PROCEDURE: Patient tolerated the procedure well. No immediate postprocedure complications are noted. Patient is discharged in good condition. Discharge date 05/16/2019. Discharge diet: Regular. Discharge activity: Regular. 2 to 3-week follow-up to discuss findings. Patient is instructed to call the office or proceed to the emergency room should there be any further questions. Wait on the pathology.
[2019-05-16 10:50] VITALS: BP 100/54
== END 2019-05-16 10:51 | disposition home or self-care (01) ==
LOC: END 08:03
PROVIDERS: ATTEND Internal Medicine Gastroenterology
DX: K29.51 Unspecified chronic gastritis with bleeding (principal); I10 Essential (primary) hypertension; Z85.3 Personal history of malignant neoplasm of breast; E78.00 Pure hypercholesterolemia, unspecified; Z79.82 Long term (current) use of aspirin
CPT/HCPCS: 43239; 88342 ×2; 88305 ×2; 00731; J2704; 731

== ENCOUNTER → 2019-07-11 | Outpatient (CLI) | payer MEDICARE, OTHER ==
--- NOTE | 2019-07-11 10:41 | RADIOLOGY REPORT (SQ) ---
EXAM DESCRIPTION: CT ABD/PELVIS WITH IV ONLY COMPLETED DATE/TIME: 07/11/2019 10:15 am REASON FOR STUDY: ABD PAIN (R10.9) R10.9 UNSPECIFIED ABDOMINAL PAIN COMPARISON: 05/20/2017 TECHNIQUE: CT scan of the abdomen and pelvis performed using helical scanning technique with dynamic intravenous contrast injection. No oral contrast. Images reviewed with lung, soft tissue, and bone windows. Reconstructed coronal and sagittal MPR images reviewed. Delayed images for evaluation of the urinary system also acquired. All images stored on PACS. All CT scanners at this facility use dose modulation, iterative reconstruction, and/or weight based d osing when appropriate to reduce radiation dose to as low as reasonably achievable (ALARA). [facility]: Dose Right [facility]: CareDose [facility]: Dose Right [facility]: Teradose 4D [facility]: [employer] CONTRAST TYPE AND DOSE: contrast/concentration: Isovue 350.00 mg/ml; Total Contrast Delivered: 85.0 ml; Total Saline Delivered: 66.0 ml RENAL FUNCTION: GFR > 60. RADIATION DOSE: CT Rad equipment meets quality standard of care and radiation dose reduction techniq ues were employed. CTDIvol: 6.5 - 6.6 mGy. DLP: 704 mGy-cm.. LIMITATIONS: None. FINDINGS: LOWER CHEST: No significant findings. No nodules or infiltrates. LIVER: Normal size. No masses. No dilated ducts. SPLEEN: Normal size. No focal lesions. PANCREAS: No masses. No significant calcifications. No adjacent inflammation or peripancreatic fluid collections. Pancreatic duct not dilated. GALLBLADDER: Surgically absent. ADRENAL GLANDS: No significant masses or asymmetry. RIGHT KIDNEY AND URETER: No solid masses. No significant calcifications. No hydronephrosis or hyd roureter. LEFT KIDNEY AND URETER: No solid masses. No significant calcifications. No hydronephrosis or hydr oureter. AORTA AND VESSELS: No aneurysm. No dissection. Renal arteries, SMA, celiac without stenosis. Scatter ed atherosclerosis. RETROPERITONEUM: No retroperitoneal adenopathy, hemorrhage or masses. BOWEL AND PERITONEAL CAVITY: No masses or inflammatory changes. No free fluid or peritoneal masses. Pancolonic diverticulosis. APPENDIX: Surgically absent. PELVIS: No mass. No free fluid. Normal bladder. ABDOMINAL WALL: No masses. No hernias. BONES: No significant or acute findings. OTHER: None. IMPRESSION: 1. No acute CT findings of the abdomen or pelvis to explain pain. 2. Pancolonic diverticulosis. 3. Other chronic incidental and postoperative findings as detailed above. TECHNICAL DOCUMENTATION: JOB ID: [id number] Quality ID # [id number]: Final reports with documentation of one or more dose reduction techniques (e.g., Au tomated exposure control, adjustment of the mA and/or kV according to patient size, use of iterative reconstruction technique) 2010 [employer]- All Rights Reserved Reading location - IP/workstation name: [email or web address]
== END ==
LOC: RAD 09:30
PROVIDERS: ATTEND Internal Medicine Gastroenterology
DX: K57.30 Diverticulosis of large intestine without perforation or abscess without bleeding (principal); R10.9 Unspecified abdominal pain
CPT/HCPCS: 74177; 82565

== ENCOUNTER 2019-12-23 22:38 | Emergency (ER) | payer MEDICARE, OTHER ==
--- NOTE | 2019-12-23 22:49 | ER Document Report ---
ED Medical Screen (RME) - General Chief Complaint: Medical Complaint Stated Complaint: UNEXPLAINED WEIGHT LOSS Time Seen by Provider: 12/23/19 22:44 Primary Care Provider: MARLENE LING [Primary Care Provider] - Follow up as needed Mode of Arrival: Ambulatory Information source: Patient Notes: HPI; 64-year-old female presents to the emergency room complaining of weight loss, nausea, insomnia for the past 3 weeks. Recently diagnosed with UTI and on antibiotics. Denies fevers. Denies abdominal pain. PE: Alert and oriented x3. Mild distress noted. Lungs: Clear to auscultation without rales rhonchi wheezes. Heart: Regular rate rhythm without murmurs rubs or gallops. I have greeted and performed a rapid initial assessment of this patient. A comprehensive ED assessment and evaluation of the patient, analysis of test results and completion of the medical decision making process will be conducted by additional ED providers. I have specifically instructed the patient or family members with the patient to immediately return to any nursing staff should anything change in the patient's condition or with their chief complaint. TRAVEL OUTSIDE OF THE [place] IN LAST 30 DAYS: No - Related Data Allergies/Adverse Reactions: No Known Allergies Allergy (Verified 05/16/19 08:02) Past Medical History - Past Medical History Cardiac Medical History: Reports: Hx Hypercholesterolemia, Hx Hypertension Denies: Hx Coronary Artery Disease, Hx Heart Attack Pulmonary Medical History: Denies: Hx Asthma, Hx Bronchitis, Hx COPD, Hx Pneumonia Neurological Medical History: Denies: Hx Cerebrovascular Accident, Hx Seizures Renal/ Medical History: Denies: Hx Peritoneal Dialysis GI Medical History: Reports: Hx Gastroesophageal Reflux Disease. Denies: Hx Hepatitis, Hx Hiatal Hernia, Hx Ulcer Musculoskeltal Medical History: Reports Hx Arthritis - BILAT KNEES Infectious Medical History: Denies: Hx Hepatitis Past Surgical History: Reports: Hx Appendectomy, Hx Section, Hx Cholecystectomy, Hx Mastectomy - LT BREAST/AVOID LT ARM. Denies: Hx Hyste rectomy, Hx Open Heart Surgery, Hx Pacemaker - Immunizations Hx Diphtheria, Pertussis, Tetanus Vaccination: Yes Physical Exam - Vital signs Vitals: Temp Pulse Resp BP Pulse Ox 98.6 F 88 18 138/75 H 96 12/23/19 22:44 12/23/19 22:44 12/23/19 22:44 12/23/19 22:44 12/23/19 22:44 Course - Vital Signs Vital signs: Temp Pulse Resp BP Pulse Ox 98.6 F 88 18 138/75 H 96 12/23/19 22:44 12/23/19 22:44 12/23/19 22:44 12/23/19 22:44 12/23/19 22:44 Doctor's Discharge - Discharge Referrals: LOCALMD,NO [Primary Care Provider] - Follow up as needed
[2019-12-23 23:13] LABS: APPEARANCE,URINE CLEAR; BILIRUBIN,URINE NEGATIVE (NEGATIVE); COLOR,URINE STRAW; GLUCOSE, URINE NEGATIVE (NEGATIVE); KETONES,URINE NEGATIVE (NEGATIVE); LEUKOCYTE ESTERASE,URINE NEGATIVE (NEGATIVE); NITRITE,URINE NEGATIVE (NEGATIVE); PROTEIN,URINE NEGATIVE (NEGATIVE); URINE SPECIFIC GRAVITY 1.006; UROBILINOGEN,URINE NEGATIVE mg/dL (<2.0)
[2019-12-23 23:59] LABS: ABSOLUTE BASOPHILS # (AUTO) 0.1 10^3/uL (0.0-0.2); ABSOLUTE EOSINOPHILS # (AUTO) 0.1 10^3/uL (0.0-0.6); ABSOLUTE LYMPHOCYTES (AUTO) 1.7 10^3/uL (0.5-4.7); ABSOLUTE MONOCYTES (AUTO) 0.8 10^3/uL (0.1-1.4); ABSOLUTE NEUT (AUTO) 5.3 10^3/uL (1.7-8.2); BASOPHILS % (AUTO) 0.7 % (0-2); EOSINOPHILS % (AUTO) 1.8 % (0-6); HEMATOCRIT 35.2 % (36.0-47.0); HEMOGLOBIN 12.9 g/dL (12.0-15.5); LYMPHOCYTES % (AUTO) 21.1 % (13-45); MEAN CORPUSCULAR HGB CONC 36.7 g/dL (32.0-36.0); MEAN CORPUSCULAR VOLUME 95 fl (80-97); MONOCYTES % (AUTO) 9.9 % (3-13); PLATELET COUNT 226 10^3/uL (150-450); RED CELL DISTRIBUTION WIDTH 12.3 % (11.5-14.0); SEGMENTED NEUTROPHILS % (AUTO) 66.5 % (42-78); TOTAL CELLS COUNTED % (AUTO) 100 %
[2019-12-24 00:34] LABS: ALBUMIN 4.5 g/dL (3.5-5.0); ALKALINE PHOSPHATASE 89 U/L (38-126); ANION GAP 10 (5-19); ASPARTATE AMINO TRANSFERASE 26 U/L (14-36); BILIRUBIN,TOTAL 0.3 mg/dL (0.2-1.3); BLOOD UREA NITROGEN 17 mg/dL (7-20); CALCIUM 9.9 mg/dL (8.4-10.2); CARBON DIOXIDE 25 mmol/L (22-30); CHLORIDE 98 mmol/L (98-107); GLUCOSE 122 mg/dL (75-110); POTASSIUM 3.8 mmol/L (3.6-5.0); TOTAL PROTEIN 7.3 g/dL (6.3-8.2)
--- NOTE | 2019-12-24 00:39 | ER Document Report ---
ED General - General Chief Complaint: Medical Complaint Stated Complaint: UNEXPLAINED WEIGHT LOSS Time Seen by Provider: 12/23/19 22:44 Primary Care Provider: MARLENE LING [Primary Care Provider] - Follow up as needed Mode of Arrival: Ambulatory Notes: 64-year-old female presents the emergency department because she is concerned that she has lost 12 pounds since October 30. Additionally patient is concerned that she continues to have some nausea that has been going on for the past 2 weeks. Patient developed some low back pain on 12/04/2019 and was seen at [facility], had x-rays performed and was told she had arthritis in her back. States that she was told that she should walk and try physical therapy but was not referred to physical therapy. After she continued with her usual 2.1 miles of walking a day and her back pain did not improve she went to see Dr. Rivas and was diagnosed with a urinary tract infection yesterday. Patient has dysuria and urgency for the past few days and states that since being started on Bactrim twice a day yesterday her symptoms have all resolved except for the nausea. Denies sweats or chills. Does complain of being fatigued but having difficulty sleeping for the past several months. States she used to use melatonin but that is no longer working. TRAVEL OUTSIDE OF THE [place] IN LAST 30 DAYS: No - Related Data Allergies/Adverse Reactions: No Known Allergies Allergy (Verified 05/16/19 08:02) Past Medical History - General Information source: Patient - Social History Smoking Status: Never Smoker Frequency of alcohol use: Occasional Drug Abuse: None Family History: denies: Arthritis, Other - No clotting disorder - Past Medical History Cardiac Medical History: Reports: Hx Hypercholesterolemia, Hx Hypertension Denies: Hx Coronary Artery Disease, Hx Heart Attack Pulmonary Medical History: Denies: Hx Asthma, Hx Bronchitis, Hx COPD, Hx Pneumonia Neurological Medical History: Denies: Hx Cerebrovascular Accident, Hx Seizures Renal/ Medical History: Denies: Hx Peritoneal Dialysis GI Medical History: Reports: Hx Gastroesophageal Reflux Disease. Denies: Hx Hepatitis, Hx Hiatal Hernia, Hx Ulcer Musculoskeletal Medical History: Reports Hx Arthritis - BILAT KNEES Infectious Medical History: Denies: Hx Hepatitis Past Surgical History: Reports: Hx Appendectomy, Hx Section, Hx Cholecystectomy, Hx Mastectomy - LT BREAST/AVOID LT ARM. Denies: Hx Hysterectomy, Hx Open Heart Surgery, Hx Pacemaker - Immunizations Hx Diphtheria, Pertussis, Tetanus Vaccination: Yes Review of Systems - Review of Systems Constitutional: See HPI, Other - Difficulty sleeping., Weight loss EENT: No symptoms reported Cardiovascular: No symptoms reported. denies: Chest pain, Palpitations Respiratory: No symptoms reported Gastrointestinal: See HPI, Nausea. denies: Diarrhea, Vomiting Genitourinary: See HPI, Dysuria, Frequency Female Genitourinary: No symptoms reported Musculoskeletal: See HPI, Back pain Neurological/Psychological: See HPI, Other - Difficulty sleeping. -: Yes All other systems reviewed and negative Physical Exam - Vital signs Vitals: Temp Pulse Resp BP Pulse Ox 98.6 F 88 18 138/75 H 96 12/23/19 22:44 12/23/19 22:44 12/23/19 22:44 12/23/19 22:44 12/23/19 22:44 Interpretation: Hypertensive - Notes Notes: GENERAL: Alert, interacts well. No acute distress. HEAD: Normocephalic, atraumatic EYES: Pupils equal, round and reactive to light, extraocular movements intact. ENT: Oral mucosa moist, tongue midline. NECK: Full range of motion, supple, trachea midline. LUNGS: Clear to auscultation bilaterally, no wheezes, rales or rhonchi, no respiratory distress. HEART: Regular rate and rhythm, no murmurs, gallops, rubs. ABDOMEN: Soft, nontender, nondistended, bowel sounds present in all 4 quadrants. EXTREMITIES: Moves all 4 extremities spontaneously, no edema, radial and dorsalis pedis pulses 2/4 bilaterally. No cyanosis. NEUROLOGICAL: Alert and oriented x3, normal speech, biceps and patellar DTRs 2+ bilaterally. PSYCH: Normal mood, normal affect. SKIN: Warm, Dry, normal turgor, no rashes or lesions noted. Course - Re-evaluation Re-evalutation: 12/24/19 00:37 CBC grossly unremarkable, urinalysis unremarkable. Chemistry still pending. Discussed sleep habits with patient, she uses devices until about an hour before she goes to bed, does not take any caffeine. Discussed with patient that I would not recommend starting sleep aids yet but rather focus on sleep hygiene. Patient is referred to Dr. Amos who is board certified in sleep medicine. She will follow-up with him as an outpatient if sleep hygiene habits do not help. Discussed with patient that she may wish to see her primary care physician to discuss her difficulty sleeping further. Patient is not having any hallucinati ons, she does sleep every night she just feels tired during the day. Also discussed with patient that she may find that now that her UTI is being treated her nausea improves and her sleep improves. 12 pound weight loss over 2 months in somebody who is walking 2.1 miles a day does not require any form of emergent work-up in the emergency department. 12/24/19 00:40 CMP is also unremarkable, glucose is 122 nonfasting. This is not concerning at this time. - Vital Signs Vital signs: Temp Pulse Resp BP Pulse Ox 98.6 F 88 18 138/75 H 96 12/23/19 22:44 12/23/19 22:44 12/23/19 22:44 12/23/19 22:44 12/23/19 22:44 - Laboratory Result Diagrams: 12/23/19 23:45 12/23/19 23:45 Laboratory results interpreted by me: 12/23/19 12/23/19 23:45 23:45 RBC 3.70 L Hct 35.2 L MCH 35.0 H MCHC 36.7 H Sodium 133.3 L Est GFR (MDRD) Non-Af 53 L Glucose 122 H Discharge - Discharge Clinical Impression: Weight loss, non-intentional, Difficulty sleeping, Nausea Condition: Stable Disposition: HOME, SELF-CARE Additional Instructions: Today your blood sugar is 122. This is a nonfasting blood sugar and not concerning at this time. I would still follow-up with your primary care physician regarding your unintentional weight loss and/or sleep difficulty. It may also be a good idea to see Dr. Amos as an outpatient. He is certified in sleep medicine and will be able to help you more with your sleep concerns. I would recommend setting your alarm so you wake up the same time every morning and intentionally are in bed trying to fall asleep between 8 and 9 hours prior to your alarm going off in the morning. For example if you were going to wake up at 6:30 in the morning you want to be lying in bed ready to sleep no later than 10:30 at night. You should turn off all devices such as cell phones, e- readers or computers that utilize blue light at least 2 hours if not 4 hours prior to bedtime. Please do not drink any caffeine after noon. Referrals: NOEL RIVAS MD [EMERITUS] - Follow up as needed KEYA AMOS MD [ACTIVE STAFF] - Follow up as needed
[2019-12-24 01:05] VITALS: BP 144/83
== END 2019-12-24 01:03 | disposition home or self-care (01) ==
LOC: ER 22:38
DX: R63.4 Abnormal weight loss (principal); G47.00 Insomnia, unspecified; R11.0 Nausea; M54.5 Low back pain; R30.0 Dysuria; R39.15 Urgency of urination; R53.83 Other fatigue; I10 Essential (primary) hypertension
CPT/HCPCS: 36415; 80053; 81001; 85025; 99284